=== PATIENT | male | born 1975 | race Caucasian/White ===

== ENCOUNTER 2016-12-05 11:59 | Emergency (ER) | payer MEDICAID, OTHER ==
[~2016-12-05] VITALS: Ht 177.8 cm; Wt 68.0 kg
[~2016-12-05 11:59] MED LIST: UNOBMED
[2016-12-05] MEDS ORDERED: QUETIAPINE FUM200 MG ORAL (13:00)
[2016-12-05] MEDS ORDERED: WELLBUTRIN XL150 M1 ORAL (13:00)
--- NOTE | 2016-12-05 13:11 | Emergency Room Report ---
History of Present Illness General Chief Complaint: Medication Refill Source: Patient Present Illness HPI The patient is a 41-year-old male presenting for medication refill. He states that his a history of depression disorder and needs refill of wellbutrin and seroquel. He ran out yesterday. Next appointment with psychiatry is 3 weeks from now. He denies any suicidal ideation. He denies any other symptoms including N, V, F, chills, SOB, CP, dizziness, PAIGE, fatigue Allergies: Coded Allergies: No Known Allergies (Unverified , 11/27/12) Patient History Reviewed Nursing Documentation: PMH: Agreed, PSxH: Agreed Nursing Documentation-PMH History Of Psychiatric Problem: Yes - Depression Review of Systems All Other Systems: negative except mentioned in HPI Physical Exam Vital Signs Date Time Temp Pulse Resp B/P (MAP) Pulse Ox O2 Delivery O2 Flow Rate FiO2 12/05/16 12:14 97.9 78 16 132/79 97 Room Air Sp02 EP Interpretation: reviewed, normal General Appearance: no apparent distress, alert, GCS 15, non-toxic Head: normocephalic, atraumatic Eyes: bilateral eye normal inspection, bilateral eye PERRL ENT: hearing grossly normal, normal pharynx, no angioedema, normal voice Neck: full range of motion, supple/symm/no masses Respiratory: chest non-tender, lungs clear, normal breath sounds, speaking full sentences Musculoskeletal: back normal, gait/station normal, normal range of motion, non- tender Neurologic: alert, oriented x3, responsive, motor strength/tone normal, sensory intact, speech normal Psychiatric: judgement/insight normal, memory normal, mood/affect normal, no suicidal/homicidal ideation Suicide Risk Assessment: Suicidal Ideation: No Skin: normal color, no rash, warm/dry, well hydrated Lymphatic: no adenopathy Medical Decision Making PA Attestation Dr. Galindo is my supervising physician. Patient management was discussed with my supervising physician Diagnostic Impression: Primary Impression: Depressive disorder Additional Impression: Encounter for medication refill ER Course The patient is a 41-year-old male with a history of depression presenting for medication refill Differential diagnoses considered but not limited to Depression, anxiety, suicidal ideation, homicidal ideation, depression PE: No apparent distress. A&Ox4 PERRL. EOMI. Normal mentation. Skin is warm and dry, no rashes. The patient given refill of medications and told to followup with his psychiatrist as soon as possible. He is given information regarding [facility] mental health fac[facility]. ER precautions given Last Vital Signs Date Time Temp Pulse Resp B/P (MAP) Pulse Ox O2 Delivery O2 Flow Rate FiO2 12/05/16 12:14 97.9 78 16 132/79 97 Room Air Status: improved Disposition: HOME, SELF-CARE Condition: Improved Scripts Quetiapine Fumarate* (SEROQUEL*) 200 Mg Tablet 200 MG ORAL DAILY, #30 TAB Prov: BRIE STAPLETON 12/05/16 Bupropion HCl (Wellbutrin Xl) 300 Mg Tab.er.24h 300 MG ORAL DAILY for 30 Days, #30 TAB 0 Refills Prov: BRIE STAPLETON 12/05/16 Referrals: [facility]ERR[facility] (PCP) Patient Instructions: Medicine Refill at the Emergency Department Additional Instructions: I discussed my findings with the patient. All questions and concerns have been answered. Treatment and medication compliance have been addressed. I advised the patient that they need to follow up with psychiatry as soon as possible. Return to ED if symptoms worsen, new symptoms arise, or if needed for any reason. Patient verbalized understanding of discharge instructions. BRIE STAPLETON Dec 05, 2016 13:11
[2016-12-05 13:12] VITALS: BP 132/79
== END 2016-12-05 13:15 | disposition home or self-care (01) ==
LOC: EMR 12:35
DX: F32.9 Major depressive disorder, single episode, unspecified (principal); Z76.0 Encounter for issue of repeat prescription
CPT/HCPCS: 99283

== ENCOUNTER 2018-09-09 20:38 | Observation (INO) | payer OTHER, SELFPAY ==
[2018-09-08 23:40] VITALS: BP 144/88
[~2018-09-09] VITALS: Ht 180.3 cm; Wt 63.5 kg
[~2018-09-09 20:38] MED LIST changes: +QUETIAPINE FUM200 MG ORAL; +WELLBUTRIN XL150 M1 ORAL
--- NOTE | 2018-09-09 20:40 | NUR ---
ED Nurse Note: Patient [facility] c/o medical clearance. at time of arrival patient reports of having multiple episodes of vomtiing, denies any pain, statess that he is having alcohol withdrawal. patient is alert and oriented x4
[2018-09-09] MEDS ORDERED: Thiamine HCl 100 MG in D5W 55 ML IV ONE (20:45)
[2018-09-09] MEDS ORDERED: LORazepam Inj 2mg/ml 1ml IV ONE (20:45)
--- NOTE | 2018-09-09 20:45 | Emergency Room Report ---
History of Present Illness General Chief Complaint: Medical Clearance Source: Patient Present Illness HPI Patient presents with vomiting and complaints of alcohol withdrawal. He was booked but started feeling ill and so he was brought here for medical clearance. He drinks about a pint a half every day. He has a history of withdrawal seizures in the past. He is not taking medication for this. In addition he has had a history of gastritis. He denies vomiting blood or melena. He denies any tremor. He denies head trauma or headache. The patient's been seen here in the past for alcohol abuse. The patient admits to cocaine. No fevers, chills, sore throat, chest pain, palpitations, dysuria, abdominal pain, shortness of breath, joint pain, rashes, visual changes, headache. The patient has a history of depression. He has been evaluated in the past for this. He denies suicidal or homicidal ideation at this time. Allergies: Coded Allergies: No Known Allergies (Unverified , 11/27/12) Patient History Past Medical History: see triage record Social History: Reports: alcohol use, drug use Social History Narrative arrested on warrants Reviewed Nursing Documentation: PMH: Agreed; PSxH: Agreed Nursing Documentation-PMH Past Medical History: No Stated History Review of Systems All Other Systems: negative except mentioned in HPI Physical Exam Vital Signs Date Time Temp Pulse Resp B/P (MAP) Pulse Ox O2 Delivery O2 Flow Rate FiO2 09/09/18 20:39 97.7 87 17 150/99 (116) 95 Room Air Sp02 EP Interpretation: reviewed, normal General Appearance: well appearing, no apparent distress, GCS 15, other - Vomiting Head: normocephalic, atraumatic Eyes: bilateral eye PERRL, bilateral eye EOMI, bilateral eye Scleral Injection ENT: moist mucus membranes Neck: supple Respiratory: lungs clear, normal breath sounds Cardiovascular #1: regular rate, rhythm Cardiovascular #2: 2+ radial (R) Gastrointestinal: normal inspection, normal bowel sounds, non tender, no mass, non-distended, other - Vomit without coffee grounds or blood, scaphoid Genitourinary: no CVA tenderness Musculoskeletal: back normal, gait/station normal, normal range of motion Neurologic: alert, oriented x3, other - No tremor, grossly normal Psychiatric: no suicidal/homicidal ideation, anxious Skin: no rash Medical Decision Making Diagnostic Impression: Primary Impression: Alcohol withdrawal Qualified Codes: F10.239 - Alcohol dependence with withdrawal, unspecified Additional Impressions: Nausea and vomiting Qualified Codes: R11.2 - Nausea with vomiting, unspecified Elevated troponin Leukocytosis Qualified Codes: D72.828 - Other elevated white blood cell count Substance abuse ER Course The patient presents with vomiting and alleged alcohol withdrawal. Differential includes acute myocardial infarction, elect light imbalance, pancreatitis, alcohol withdrawal, substance abuse amongst others. The patient will be evaluated with EKG, chest x-ray and labs. The patient will be given thiamine and IV hydration Zofran and Ativan. EKG no injury. CXR normal. Leukocytosis. Lab called with + troponin. Aspirin ordered. Not tachycardic. Patient denies chest pain. Presumptive elevated troponin related to cocaine use. No urine provided. Improved with treatment. Needs obs tele. Discussed with med alert center. No telemetry beds available. Admitted observation telemetry . Dr. Slater on-call. Laboratory Tests Test 09/09/18 20:40 White Blood Count 19.4 K/UL (4.8-10.8) H Red Blood Count 5.81 M/UL (4.70-6.10) Hemoglobin 17.6 G/DL (14.2-18.0) Hematocrit 52.2 % (42.0-52.0) H Mean Corpuscular Volume 90 FL (80-99) Mean Corpuscular Hemoglobin 30.4 PG (27.0-31.0) Mean Corpuscular Hemoglobin Concent 33.7 G/DL (32.0-36.0) Red Cell Distribution Width 11.3 % (11.6-14.8) L Platelet Count 312 K/UL (150-450) Mean Platelet Volume 5.6 FL (6.5-10.1) L Neutrophils (%) (Auto) % (45.0-75.0) Lymphocytes (%) (Auto) % (20.0-45.0) Monocytes (%) (Auto) % (1.0-10.0) Eosinophils (%) (Auto) % (0.0-3.0) Basophils (%) (Auto) % (0.0-2.0) Differential Total Cells Counted 100 Neutrophils % (Manual) 92 % (45-75) H Lymphocytes % (Manual) 4 % (20-45) L Monocytes % (Manual) 3 % (1-10) Eosinophils % (Manual) 0 % (0-3) Basophils % (Manual) 0 % (0-2) Band Neutrophils 1 % (0-8) Platelet Estimate Adequate Platelet Morphology Normal Red Blood Cell Morphology Normal Prothrombin Time 11.3 SEC (9.30-11.50) Prothrombin Time INR 1.1 (0.9-1.1) Sodium Level 134 MMOL/L (136-145) L Potassium Level 5.3 MMOL/L (3.5-5.1) H Chloride Level 97 MMOL/L (98-107) L Carbon Dioxide Level 33 MMOL/L (21-32) H Anion Gap 4 mmol/L (5-15) L Blood Urea Nitrogen 24 mg/dL (7-18) H Creatinine 1.0 MG/DL (0.55-1.30) Estimate Glomerular Filtration Rate > 60 mL/min (>60) Glucose Level 150 MG/DL (74-106) H Calcium Level 10.0 MG/DL (8.5-10.1) Magnesium Level 2.0 MG/DL (1.8-2.4) Total Bilirubin 0.5 MG/DL (0.2-1.0) Aspartate Amino Transferase (AST) 22 U/L (15-37) Alanine Aminotransferase (ALT) 25 U/L (12-78) Alkaline Phosphatase 106 U/L (46-116) Total Creatine Kinase 44 U/L (26-308) Troponin I 0.060 ng/mL (0.000-0.056) Total Protein 8.1 G/DL (6.4-8.2) Albumin 4.5 G/DL (3.4-5.0) Globulin 3.6 g/dL Albumin/Globulin Ratio 1.2 (1.0-2.7) Lipase 107 U/L (73-393) Salicylates Level 0.7 ug/mL (2.8-20) L Acetaminophen Level < 2 MCG/ML (10-30) L Serum Alcohol < 3 mg/dL EKG Diagnostic Results Rate: normal Rhythm: NSR ST Segments: no acute changes Rhythm Strip Diag. Results EP Interpretation: yes Rhythm: NSR, no PVC's, no ectopy Chest X-Ray Diagnostic Results Chest X-Ray Diagnostic Results : Chest X-Ray Ordered: Yes # of Views/Limited/Complete: 1 View Indication: Other EP Interpretation: Yes Interpretation: no consolidation, no effusion, no pneumothorax Impression: No acute disease Electronically Signed by: Electronically signed by Refugio Rothman MD Last Vital Signs Date Time Temp Pulse Resp B/P (MAP) Pulse Ox O2 Delivery O2 Flow Rate FiO2 09/10/18 04:00 97.6 75 16 130/72 (91) 100 09/09/18 23:01 Room Air Status: improved Disposition: PLACE IN OBSERVATION Condition: Serious Refugio Rothman MD Sep 09, 2018 20:45
[2018-09-09 21:02] LABS: HEMATOCRIT 52.2 % (42.0-52.0); HEMOGLOBIN 17.6 G/DL (14.2-18.0); MEAN CORPUSCULAR VOLUME 90 FL (80-99); PLATELET COUNT 312 K/UL (150-450); RED BLOOD COUNT 5.81 M/UL (4.70-6.10); RED CELL DISTRIBUTION WIDTH 11.3 % (11.6-14.8); WHITE BLOOD COUNT 19.4 K/UL (4.8-10.8)
[2018-09-09 21:11] VITALS: BP 150/99
[2018-09-09 21:13] LABS: INR 1.1 (0.9-1.1)
[2018-09-09 21:18] LABS: ANION GAP 4 mmol/L (5-15); BLOOD UREA NITROGEN 24 mg/dL (7-18); CARBON DIOXIDE 33 MMOL/L (21-32); CHLORIDE 97 MMOL/L (98-107); POTASSIUM 5.3 MMOL/L (3.5-5.1); SODIUM 134 MMOL/L (136-145)
[2018-09-09 21:22] LABS: ALANINE AMINOTRANSFERASE 25 U/L (12-78); ALBUMIN 4.5 G/DL (3.4-5.0); ALBUMIN/GLOBULIN RATIO 1.2 (1.0-2.7); ALKALINE PHOSPHATASE 106 U/L (46-116); ASPARTATE AMINO TRANSFERASE 22 U/L (15-37); BILIRUBIN,TOTAL 0.5 MG/DL (0.2-1.0); CREATINE KINASE 44 U/L (26-308)
--- NOTE | 2018-09-09 22:10 | NUR ---
Per officer Roshan patient to be admitted to [facility], contacted-no Tele beds avail;able at this time, patient to be admitted to [facility]- Tele OBS. Officer Roshan aware.
--- NOTE | 2018-09-09 22:15 | NUR ---
ED Nurse Note: attempted to straight cath patient, unable to get urine. patient admits to using cocaine earleir today. Dr. Rothman stated patient okay to go up without urine.
[2018-09-09 22:40] VITALS: BP 144/88
--- NOTE | 2018-09-09 22:40 | NUR ---
NURSE NOTES: Pt received from RICARDO Blevins alert and oriented x4 with no acute s/s of distress noted. IV site asymptomatic and patent, on L ac 20g. Accompanied by police custody d/t multiple arrest warrants per officer. Per pt, he is not on any home meds and does not have history of vaccinations. No wounds noted upon admission. Belongings with patient upon admission - signed by transferring and receiving RN. VSS stable - 144/88, 71 HR, 97.5 temp, and 16 RR, 100% on room air. classroom monitor on - Sinus Rhythm, 73 on monitor. Left message with Dr. Tom for admission orders, will continue to monitor pt.
--- NOTE | 2018-09-09 22:40 | NUR ---
TRANSFER TO FLOOR: Patient transferred to [facility] as ordered, per . Report given to RICARDO Gomez
--- NOTE | 2018-09-09 23:40 | NUR ---
NURSE NOTES: Received admission orders from Dr. Slater, will carry out orders and continue to monitor pt.
[2018-09-10] VITALS: BP 135/76
[2018-09-10] MEDS ORDERED: LORazepam Inj 2mg/ml 1ml IV PRN
[2018-09-10] MEDS ORDERED: Thiamine HCl 100 MG in D5W 55 ML IVPB SCH ×2
[2018-09-10] MEDS ORDERED: Folic Acid 1 MG, Magnesium Sulfate 2,000 MG, Multivitamin - 12 Injection 10 ML in Sodiu... IV ONE ×4
--- NOTE | 2018-09-10 02:05 | NUR ---
NURSE NOTES: Per Deputy Islas (Badge# [id number]), "[facility] pt is taken off of custody d/t manpower outweighing charges against patient. Citation to appear in court placed with patient." Bed alarm on, bed in lowest position. Room close to nursing station for pt safety. Kimberli Santiago, Charge Nurse informed. Vivek Sahu, Spray Crew notified.
--- NOTE | 2018-09-10 03:48 | NUR ---
NURSE NOTES: Pt currently resting in bed, no acute s/s of distress. IV asymptomatic and patent on L ac 20g, currently running NS as ordered. monitoring engineer on - Sinus Rhythm.
[2018-09-10 04:00] VITALS: BP 130/72
[2018-09-10 06:08] LABS: BASOPHILS % (AUTO) 0.4 % (0.0-2.0); EOSINOPHILS % (AUTO) 1.5 % (0.0-3.0); HEMATOCRIT 42.6 % (42.0-52.0); HEMOGLOBIN 14.4 G/DL (14.2-18.0); LYMPHOCYTES % (AUTO) 13.2 % (20.0-45.0); MEAN CORPUSCULAR VOLUME 92 FL (80-99); MONOCYTES % (AUTO) 6.5 % (1.0-10.0); NEUTROPHILS % (AUTO) 78.3 % (45.0-75.0); PLATELET COUNT 245 K/UL (150-450); RED BLOOD COUNT 4.64 M/UL (4.70-6.10); RED CELL DISTRIBUTION WIDTH 11.6 % (11.6-14.8); WHITE BLOOD COUNT 10.6 K/UL (4.8-10.8)
[2018-09-10 06:11] LABS: ANION GAP 3 mmol/L (5-15); BLOOD UREA NITROGEN 18 mg/dL (7-18); CALCIUM 8.2 MG/DL (8.5-10.1); CARBON DIOXIDE 29 MMOL/L (21-32); CHLORIDE 102 MMOL/L (98-107); CREATININE 0.9 MG/DL (0.55-1.30); PHOSPHORUS 3.1 MG/DL (2.5-4.9); POTASSIUM 4.7 MMOL/L (3.5-5.1); SODIUM 134 MMOL/L (136-145)
--- NOTE | 2018-09-10 07:15 | NUR ---
HAND-OFF: Report given to RICARDO Patel. No acute s/s of distress noted.
--- NOTE | 2018-09-10 07:29 | NUR ---
NURSE NOTES: Pt in bed in low position, call light at bedside, bed alarm on, fluids currently running, pt scheduled for a banana bag later today, IV patent and intact, pt sleeping and is currently NPO due to n/v reported on time of admission, base line orientation is x4, no s/s of distress or sob noted.
[2018-09-10 08:00] VITALS: BP 134/89
--- NOTE | 2018-09-10 08:31 | History and Physical ---
History of Present Illness General Date patient seen: Sep 10, 2018 Time patient seen: 09:30 Reason for Hospitalization: Medical Clearance Present Illness HPI 43 yo M w PMH of gastritis, etoh abuse, cocaine use, presented for alcohol withdrawal. Patient was brought in by police for medical clearance and has since been released from custody. Patient was placed on IVf overnight for observation. He had very minimal hyopnatremia and troponin leak on admission. EKG was normal. Patient denies any sob, cp, nausea, vomiting, seizures, confusion, diarrhea, constipation, headache, dizziness, or abd pain. Patient states he has been living with friends prior to admission and would have a place to go home to once medically cleared. I discussed code status with patient and he expressed that he would like to remain FULL CODE. Allergies: Coded Allergies: No Known Allergies (Unverified , 11/27/12) Medication History Scheduled Bupropion HCl (Wellbutrin Xl), 300 MG ORAL DAILY Quetiapine Fumarate* (Seroquel*), 200 MG ORAL DAILY Miscellaneous Medications Unable to Obtain Medications (Unable To Obtain Meds), (Reported) [none], (Reported) Patient History History Provided By: Patient Healthcare decision maker Resuscitation status Full Code Advanced Directive on File Social History Social History: (1) Substance abuse (2) Alcohol withdrawal Review of Systems All Other Systems: negative except mentioned in HPI ROS Narrative including more than 12 ros Physical Exam General Appearance: WD/WN, alert, alert oriented x3, other - discheveled appearance Lines, tubes and drains: peripheral HEENT: normocephalic, atraumatic, PERRL, EOMI, supple, no JVD Neck: non-tender, normal alignment, supple Respiratory/Chest: lungs clear, normal breath sounds, no respiratory distress, no accessory muscle use Breasts: no masses Cardiovascular/Chest: normal rate, regular rhythm, regularly irregular, no gallop/murmur Abdomen: normal bowel sounds, non tender, soft, no organomegaly, no mass Extremities: non-tender, normal inspection, no calf tenderness, no edema Skin Exam: normal pigmentation, warm/dry Neurologic: sales correspondent II-XII grossly normal, oriented x 3, normal mood/affect Musculoskeletal: normal muscle bulk Last 24 Hour Vital Signs Date Time Temp Pulse Resp B/P (MAP) Pulse Ox O2 Delivery O2 Flow Rate FiO2 09/10/18 08:09 Room Air 09/10/18 08:00 98.7 72 18 134/89 (104) 09/10/18 04:00 97.6 75 16 130/72 (91) 100 09/10/18 04:00 78 09/10/18 00:00 97.5 70 16 135/76 (95) 100 09/10/18 00:00 65 09/09/18 23:37 65 09/09/18 23:01 Room Air 09/09/18 22:40 97.7 80 17 137/85 95 Room Air 09/09/18 22:40 97.5 73 17 144/88 (106) 100 09/09/18 21:11 97.7 85 17 150/99 95 Room Air 09/09/18 21:11 87 17 Room Air 09/09/18 20:39 97.7 87 17 150/99 (116) 95 Room Air Intake and Output 09/09/18 09/10/18 19:00 07:00 Intake Total 350 ml Balance 350 ml Intake Oral 100 ml IV Total 250 ml Laboratory Tests Test 09/09/18 20:40 09/10/18 05:25 White Blood Count 19.4 K/UL (4.8-10.8) H 10.6 K/UL (4.8-10.8) Red Blood Count 5.81 M/UL (4.70-6.10) 4.64 M/UL (4.70-6.10) L Hemoglobin 17.6 G/DL (14.2-18.0) 14.4 G/DL (14.2-18.0) Hematocrit 52.2 % (42.0-52.0) H 42.6 % (42.0-52.0) Mean Corpuscular Volume 90 FL (80-99) 92 FL (80-99) Mean Corpuscular Hemoglobin 30.4 PG (27.0-31.0) 31.0 PG (27.0-31.0) Mean Corpuscular Hemoglobin Concent 33.7 G/DL (32.0-36.0) 33.8 G/DL (32.0-36.0) Red Cell Distribution Width 11.3 % (11.6-14.8) L 11.6 % (11.6-14.8) Platelet Count 312 K/UL (150-450) 245 K/UL (150-450) Mean Platelet Volume 5.6 FL (6.5-10.1) L 5.8 FL (6.5-10.1) L Neutrophils (%) (Auto) % (45.0-75.0) 78.3 % (45.0-75.0) H Lymphocytes (%) (Auto) % (20.0-45.0) 13.2 % (20.0-45.0) L Monocytes (%) (Auto) % (1.0-10.0) 6.5 % (1.0-10.0) Eosinophils (%) (Auto) % (0.0-3.0) 1.5 % (0.0-3.0) Basophils (%) (Auto) % (0.0-2.0) 0.4 % (0.0-2.0) Differential Total Cells Counted 100 Neutrophils % (Manual) 92 % (45-75) H Lymphocytes % (Manual) 4 % (20-45) L Monocytes % (Manual) 3 % (1-10) Eosinophils % (Manual) 0 % (0-3) Basophils % (Manual) 0 % (0-2) Band Neutrophils 1 % (0-8) Platelet Estimate Adequate Platelet Morphology Normal Red Blood Cell Morphology Normal Prothrombin Time 11.3 SEC (9.30-11.50) Prothromb Time International Ratio 1.1 (0.9-1.1) Sodium Level 134 MMOL/L (136-145) L 134 MMOL/L (136-145) L Potassium Level 5.3 MMOL/L (3.5-5.1) H 4.7 MMOL/L (3.5-5.1) Chloride Level 97 MMOL/L (98-107) L 102 MMOL/L (98-107) Carbon Dioxide Level 33 MMOL/L (21-32) H 29 MMOL/L (21-32) Anion Gap 4 mmol/L (5-15) L 3 mmol/L (5-15) L Blood Urea Nitrogen 24 mg/dL (7-18) H 18 mg/dL (7-18) Creatinine 1.0 MG/DL (0.55-1.30) 0.9 MG/DL (0.55-1.30) Estimat Glomerular Filtration Rate > 60 mL/min (>60) > 60 mL/min (>60) Glucose Level 150 MG/DL (74-106) H 104 MG/DL (74-106) Calcium Level 10.0 MG/DL (8.5-10.1) 8.2 MG/DL (8.5-10.1) L Magnesium Level 2.0 MG/DL (1.8-2.4) 1.4 MG/DL (1.8-2.4) L Total Bilirubin 0.5 MG/DL (0.2-1.0) Aspartate Amino Transf (AST/SGOT) 22 U/L (15-37) Alanine Aminotransferase (ALT/SGPT) 25 U/L (12-78) Alkaline Phosphatase 106 U/L (46-116) Total Creatine Kinase 44 U/L (26-308) Troponin I 0.060 ng/mL (0.000-0.056) 0.061 ng/mL (0.000-0.056) Total Protein 8.1 G/DL (6.4-8.2) Albumin 4.5 G/DL (3.4-5.0) Globulin 3.6 g/dL Albumin/Globulin Ratio 1.2 (1.0-2.7) Lipase 107 U/L (73-393) Salicylates Level 0.7 ug/mL (2.8-20) L Acetaminophen Level < 2 MCG/ML (10-30) L Serum Alcohol < 3 mg/dL Phosphorus Level 3.1 MG/DL (2.5-4.9) Height (Feet): 5 Height (Inches): 11.00 Weight (Pounds): 140 Medications Current Medications Medications (Trade) Dose Ordered Sig/Henrik Route PRN Reason Start Time Stop Time Status Last Admin Dose Admin Folic Acid 1 mg/ Magnesium Sulfate 2000 mg/ Multivitamins 10 ml/Sodium Chloride 1,014.2 ml @ 125 mls/ hr Q24H IV 09/10/18 10:00 10/10/18 09:59 Heparin Sodium (Porcine) (Heparin 5000 units/ml) 5,000 units EVERY 12 HOURS SUBQ 09/10/18 09:00 10/10/18 08:59 Lorazepam (Ativan 2mg/ml 1ml) 1 mg Q4H PRN IV For Anxiety 09/10/18 00:00 09/17/18 00:00 Ondansetron HCl (Zofran) 4 mg Q4H PRN IVP Nausea & Vomiting 09/10/18 00:00 10/10/18 00:00 Sodium Chloride 1,000 ml @ 125 mls/hr Q8H IV 09/10/18 00:15 10/10/18 00:14 09/10/18 01:10 Thiamine HCl 100 mg/Dextrose 56 ml @ 112 mls/hr Q24H IVPB 09/10/18 10:00 10/10/18 09:59 Assessment/Plan Status: doing well Assessment/Plan: # Etoh withdrawal and cocaine use - tox screen is negative for salycilates and etoh - patient admits to cocaine use - cessation education - supportive care with IV hydration, thiamine and MVI # Troponin leak likely from cocaine use/tachycardia - very minimal elevation, stable - repeat x 1 - ekg reviewed: wnl - tte - cardiology consult # Leukocytosis likely 2/2 reactive, resolved - wbc of 19->10 - no s/s of infection - no need for abx # Hypovolemic Hyponatremi, minimal and stable - ivf - monitor # Hyperkalemia - resolved - ctm # Dispo - f/u troponin, tte, and cardiology; likely dc home to friends house later today Valerie Finch DO Sep 10, 2018 08:31
[2018-09-10] MEDS ORDERED: THIAMINE IV SCH ×5 (09:00)
[2018-09-10] MEDS ORDERED: [UNRECOGNIZED DRUG - OTHER] IV SCH ×5 (09:00)
[2018-09-10] MEDS ORDERED: MAGNESIUM SULFATE IV SCH ×5 (09:00)
[2018-09-10] MEDS ORDERED: SODIUM CHLORIDE IV SCH ×5 (09:00)
[2018-09-10] MEDS ORDERED: MULTIVITAMIN IV SCH ×5 (09:00)
[2018-09-10] MEDS ORDERED: Heparin 5000 units/ml inj SUBQ SCH (09:00)
[2018-09-10] MEDS ORDERED: Folic Acid 1 MG, Magnesium Sulfate 2,000 MG, Multivitamin - 12 Injection 10 ML in Sodiu... IV SCH (10:00)
[2018-09-10] MEDS ORDERED: Thiamine 100mg in D5W 55ml IVPB SCH (10:00)
--- NOTE | 2018-09-10 11:57 | Discharge Instructions ---
Discharge Instructions Discharge Instructions Follow up with: PCP Call MD/Return to Hospital if: withdrawal symptoms Diet: regular Resume Normal Activity?: Yes Activity: resume normal activities For Congestive Heart Failure Reminder Report to your physician any weight gain of 5 pounds or more in one week. Valerie Finch DO Sep 10, 2018 11:57
[2018-09-10 12:00] VITALS: BP 119/77
--- NOTE | 2018-09-10 12:08 | NUR ---
Social Service Note SW met with patient to assess for homelessness. Patient was alert, oriented and verbally responsive. Patient states he has been homeless off and on for the past 10 years. Patient contributes his life style of drinking and using as a part of the reason he is homeless. Patient states he is currently staying with a friend and will return to friends home upon discharge. Patient states he will require bus tokens to this location. Patient with previous ER visits for SI. Patient denies mental health disorder but states he has ADHD and has periods of depression. Patient does not receive out patient mental health care. Patient is open to medical health referrals. Patient admits to frequent cocaine use and ETOH dependency. Patient states he uses often and doesn't believe this will change. Patient was not receptive to resources. Patient states he has never followed up with substance abuse treatment even if court ordered. Documentation indicated patient was released from custody and has a citation in chart indicating when he will appear in court. Patient to be screened by [facility]. Community care clinic list to be provided upon discharge. MD to determine if prescription is required on DC. Check list to be completed. Will continue to monitor and assist as needed.
--- NOTE | 2018-09-10 12:17 | Diagnostic Imaging Report ---
Indication: Chest pain Technique: One view of the chest Comparison: none Findings: Lungs and pleural spaces are clear. Heart size is normal Impression: No acute process
--- NOTE | 2018-09-10 16:11 | NUR ---
NURSE NOTES: Pt eloped, didnt want to be here, removed ID band, Cardiac box, and IV himself, pt left with no shirt or shoes, just pants. notified.
--- NOTE | 2018-09-10 16:20 | NUR ---
NURSE NOTES: I was told that the pt was up and out of bed, I went to the pts room and found him aggressive, combative, and demanding to leave. I told the pt he needed to wait a little longer to finish his IV therapy. Pt responded, "I dont care, I have places to be at." At this time he removed his IV cardiac box. He ran out of his room while I chased him down. I then told him that he was bleeding, he said he didnt care. I then grabbed a band aid and overed it. I then went with him in the elevator to the lobby and walked him out.. he walked at fast pace down towards [employer].
--- NOTE | 2018-09-10 17:13 | NUR ---
CASE MANAGEMENT:REVIEW 43 YR OLD MALE BROUGHT IN BY [employer] CC: ALCOHOL WITHDRAWAL. EMESIS SI: ALCOHOL WITHDRAWAL.ELEVATED TROPONIN 97.7 87 17 150/99 95% ON RA WBC+19.4 K+5.3 BUN+24 URINE(+) AMPHETAMINES IS: IV ATIVAN 1L NS BOLUS IV THIAMINE IV ZOFRAN 1L NS BOLUS CHEST XRAY : TO TELEMETRY
--- NOTE | 2018-09-10 20:29 | Cardiology Report ---
APPROVED REPORT EXAM: Two-dimensional and M-mode echocardiogram with Doppler and color Doppler. INDICATION Chest Pain M-Mode DIMENSIONS IVSd0.9 (0.7-1.1cm)Left Atrium (MM)2.4 (1.6-4.0cm) LVDd5.4 (3.5-5.6cm)Aortic Root2.8 (2.0-3.7cm) PWd0.9 (0.7-1.1cm)Aortic Cusp Exc.1.8 (1.5-2.0cm) IVSs1.4 cm LVDs4.0 (2.5-4.0cm) PWs1.3 cm Normal left ventricular chamber size. Anteroseptal wall hypokinesia with left ventricular ejection fraction estimated to be 40-45%. Ischemic cardiomyopathy cannot be excluded. No evidence of left ventricular hypertrophy. No evidence of pericardial effusion. All other cardiac chamber sizes are within normal limits. Focal aortic valve sclerosis with adequate cusp excursion. Thickened mitral valve leaflets with normal excursion. Mitral annulus and aortic root calcification. Normal pulmonic valve structure. Normal tricuspid valve structure. IVC at normal size with physiologic collapse. A color flow and spectral Doppler study was performed and revealed: No aortic regurgitation.. Mild mitral regurgitation. Mitral diastolic velocities suggest reduced left ventricular relaxation c/w mild LV diastolic dysfunction (Grade I ). Trace tricuspid regurgitation. Tricuspid systolic velocities suggests peak right ventricular systolic pressure of 16mmHg. Trace pulmonic regurgitation present .
--- NOTE | 2018-09-10 21:04 | Cardiology Report ---
APPROVED REPORT EKG Measurement Heart [id number] Normal sinus rhythm Normal ECG
--- NOTE | 2018-09-11 13:03 | NUR ---
HOMELESS COORDINATOR HC spoke with patient and patient is alert and oriented. Patient does not have a contact number. Patient states he is chronically homeless but stays with friend (Lisa) most of the time. [address] [place] [id number]. Patient states he has been homeless for 15years. Patient doesn't want resources for a intermediate. Patient does have a pharmacy salesperson, Aisha Ramirez (mother) [phone]. Patient states he currently receives $200 in [facility]. Patient states he is currently not using any drugs but tested positive for meth. Patient states he suffer from mental health but does not want resources. Patient would like to return to his pervious living situation upon discharge. Patient is requesting bus tokens. Patient began to become antsy about taking a shower and leaving the hospital. Nurse mislead patient into telling him the electrician marine was on his way and he need to let his bag finish. Patient became very agitated with nurse and pulled out his IV and went AMA with no shirt or shoes. Nurse was able to stop him to stop the bleeding from the IV. Patient refuse to come back.
== END 2018-09-10 15:35 | disposition left against medical advice (07) ==
LOC: EMR 21:26 → 2E 21:46 → EDBEDREQ 22:09
DX: F10.239 Alcohol dependence with withdrawal, unspecified (principal); F14.90 Cocaine use, unspecified, uncomplicated; R79.89 Other specified abnormal findings of blood chemistry; R00.0 Tachycardia, unspecified; D72.829 Elevated white blood cell count, unspecified; E86.1 Hypovolemia; E87.1 Hypo-osmolality and hyponatremia; E87.5 Hyperkalemia; R11.2 Nausea with vomiting, unspecified
CPT/HCPCS: 36415; 71045; 80048; 80053; 80307; 82550; 82962; 83690; 83735; 84100; 84484; 85007; 85025; 85610; 93005; 93306; 96360; 96361; 96365; 96375; 99285; G0480; J2405; J3475; J3490; 80329; G0378